=== PATIENT | female | born 1940 | race Caucasian/White ===

== ENCOUNTER 2020-07-14 08:34 | Outpatient (CLI) | payer MEDICARE, OTHER, SELFPAY ==
[2020-07-14 09:24] LABS: Alanine Aminotransferase 21 U/L (4-35); Albumin Level 4.2 g/dL (3.5-5.1); Alkaline Phosphatase 130 U/L (38-126); Anion Gap 10 mmol/L (8-16); Aspartate Amino Transferase 20 U/L (14-36); Bilirubin,Total 2.1 mg/dL (0.2-1.3); Blood Urea Nitrogen 18 mg/dL (7-17); Calcium 9.3 mg/dL (8.4-10.2); Carbon Dioxide 24 mmol/L (22-30); Chloride 105 mmol/L (98-107); Cholesterol 149 mg/dL (0-200); Estimated Glomerular Filt Rate > 60; Glucose 220 mg/dL (65-105); HDL Direct 58 mg/dL; Potassium 3.8 mmol/L (3.4-5.0); Sodium 139 mmol/L (137-145); Triglycerides 125 mg/dL (<150)
[2020-07-14 09:35] LABS: LDL Cholesterol Direct 67 mg/dL
[2020-07-14 09:55] LABS: Creatinine Urine 187.4 mg/dL
[2020-07-14 09:59] LABS: Microalbumin Urine Random 33.8 mg/L (0-16.7)
[2020-07-14 10:56] LABS: Hemoglobin A1C 8.9 % (<5.7)
== END 2020-07-14 08:35 | disposition home or self-care (01) ==
PROVIDERS: PCP Internal Medicine; Referring Provider Nurse Practitioner; Visit Provider Internal Medicine
DX: E78.5 Hyperlipidemia, unspecified (principal); Z79.899 Other long term (current) drug therapy; I10 Essential (primary) hypertension; E11.9 Type 2 diabetes mellitus without complications; F32.9 Major depressive disorder, single episode, unspecified
CPT/HCPCS: 36415; 80053; 80061; 82043; 83036; 84443

== ENCOUNTER 2021-04-09 06:59 | Outpatient (CLI) | payer MEDICARE, OTHER, SELFPAY ==
--- NOTE | ~2021-04-09 | MR_ITS ---
EXAMINATION: MR brain/brain stem wo con DATE: 04/09/2021 08:30 INDICATION: Amnesia TECHNIQUE: Magnetic resonance imaging (MRI) of the brain and brainstem was performed without intraven ous contrast. Sequences included sagittal and axial T1-weighted SE, axial diffusion-weighted FS SE, a xial T2*-weighted GRE, axial T2-weighted FLAIR, and axial T2-weighted FSE. Apparent diffusion coeffic ient (ADC) maps were created. COMPARISON: None. FINDINGS: There are no areas of restricted diffusion to suggest acute infarction. No intracranial hemorrhage or abnormal intracranial mass lesion. There are scattered areas of nonspecific increased T2-weighted si gnal intensity in the cerebral white matter, predominantly involving the deep and periventricular whi te matter which is within normal limits for age. There are no intraparenchymal signal abnormalities s een on the other pulse sequences. The ventricles are symmetric and normal in size. There are no abnor mal extra-axial fluid collections. Flow voids are seen in the cerebral arteries on the T2-weighted se quences consistent with their expected patency. The left vertebral artery is dominant. Changes of shilpi ateral intraocular lens replacement. Mild mucosal thickening the bilateral ethmoid and right sphenoi d sinuses. Mild hyperostosis frontalis. IMPRESSION: 1. Normal aging brain. Reviewed, dictated and finalized at location A. IMPRESSION: 1. Normal aging brain.
[2021-04-09 07:27] LABS: Basophils Absolute Auto 0.1 K/mm3 (0.0-0.1); Basophils Percent Auto 0.9 % (0.2-1.2); Eosinophils Absolute Auto 0.1 K/mm3 (0-0.3); Eosinophils Percent Auto 2.1 % (0-4.4); Hematocrit 41.6 % (37.0-47.0); Immature Granulocyte Absolute 0.04 K/mm3 (0.00-0.031); Immature Granulocyte Percent A 0.7 % (0-0.5); Lymphocytes Absolute Auto 1.12 K/mm3 (0.9-3.2); Lymphocytes Percent Auto 19.2 % (18.3-44.2); Mean Corpuscular HGB Conc 33.7 g/dl (32-36); Mean Corpuscular Hemoglobin 32.3 pg (26-34); Mean Corpuscular Volume 96.1 fl (80-100); Mean Platelet Volume 10.5 fl (7.4-10.4); Monocytes Absolute Auto 0.5 K/mm3 (0.1-0.6); Monocytes Percent Auto 7.7 % (2.6-8.5); Neutrophils Percent Auto 69.4 % (45.5-73.1); Platelet Count Result 223 k/mm3 (150-375); Red Blood Count 4.33 M/mm3 (4.2-5.4); Red Cell Distribution Width 12.3 % (11.5-14.5); White Blood Count 5.8 K/mm3 (4.5-10.0)
[2021-04-09 07:40] LABS: Alanine Aminotransferase 14 U/L (4-35); Albumin Level 4.2 g/dL (3.5-5.1); Alkaline Phosphatase 108 U/L (38-126); Anion Gap 8 mmol/L (8-16); Aspartate Amino Transferase 21 U/L (14-36); Bilirubin,Total 1.7 mg/dL (0.2-1.3); Blood Urea Nitrogen 16 mg/dL (7-17); Calcium 9.8 mg/dL (8.4-10.2); Carbon Dioxide 25 mmol/L (22-30); Chloride 104 mmol/L (98-107); Estimated Glomerular Filt Rate > 60; Glucose 185 mg/dL (65-110); Potassium 3.8 mmol/L (3.4-5.0); Sodium 137 mmol/L (137-145)
== END 2021-04-09 07:00 | disposition home or self-care (01) ==
PROVIDERS: PCP Internal Medicine; Visit Provider Internal Medicine
DX: R41.3 Other amnesia (principal); F22 Delusional disorders
CPT/HCPCS: 36415; 70551; 80053; 82607; 84443; 85025

== ENCOUNTER 2022-01-09 10:41 | Outpatient (CLI) | payer MEDICARE, OTHER, SELFPAY ==
[2022-01-09 11:16] LABS: Alanine Aminotransferase 23 U/L (4-35); Albumin Level 4.4 g/dL (3.5-5.1); Alkaline Phosphatase 113 U/L (38-126); Anion Gap 5 mmol/L (8-16); Aspartate Amino Transferase 28 U/L (14-36); Bilirubin,Total 1.3 mg/dL (0.2-1.3); Blood Urea Nitrogen 18 mg/dL (7-17); Carbon Dioxide 31 mmol/L (22-30); Chloride 104 mmol/L (98-107); Cholesterol 162 mg/dL (0-200); Estimated Glomerular Filt Rate > 60; Glucose 185 mg/dL (65-110); HDL Direct 63 mg/dL; Potassium 3.4 mmol/L (3.4-5.0); Sodium 140 mmol/L (137-145); Triglycerides 88 mg/dL (<150)
[2022-01-09 11:17] LABS: Hemoglobin A1C 7.2 % (<5.7)
[2022-01-09 11:27] LABS: LDL Cholesterol Direct 65 mg/dL
== END 2022-01-09 10:42 | disposition home or self-care (01) ==
PROVIDERS: PCP Internal Medicine; Visit Provider Internal Medicine
DX: E78.5 Hyperlipidemia, unspecified (principal); Z51.81 Encounter for therapeutic drug level monitoring; Z79.899 Other long term (current) drug therapy; E11.9 Type 2 diabetes mellitus without complications
CPT/HCPCS: 36415; 80053; 80061; 83036

== ENCOUNTER 2022-03-04 12:29 | Emergency (ER) | payer OTHER, SELFPAY ==
[2022-03-04] VITALS (8 sets, daily range): BP systolic 123–152; BP diastolic 61–95; PULSE 72–86; RESP 18–20; TEMP 36.3; O2SAT 97–98
--- NOTE | ~2022-03-04 | XR_ITS ---
XR chest 1V portable 03/04/2022 12:55 Indication: Cough and increased confusion. Low blood sugar. Procedure: AP portable chest Comparison: 02/21/2018 Findings: Borderline heart size. No focal air space disease, pulmonary edema, pleural effusion or marcel pected pneumothorax. No acute osseous abnormality. There are degenerative changes of the shoulders. N o acute osseous abnormality. Impression: 1: No acute cardiopulmonary disease. Reviewed, dictated and finalized at location A. Impression: 1: No acute cardiopulmonary disease.
[2022-03-04 12:39] LABS: Glucose Point of Care 75 mg/dl (65-105)
[2022-03-04 12:49] LABS: Basophils Percent Auto 0.1 % (0.2-1.2); Hematocrit 43.2 % (37.0-47.0); Hemoglobin 14.1 g/dL (12.0-15.0); Immature Granulocyte Absolute 0.04 K/mm3 (0.00-0.031); Immature Granulocyte Percent A 0.5 % (0-0.5); Lymphocytes Absolute Auto 0.48 K/mm3 (0.9-3.2); Lymphocytes Percent Auto 5.8 % (18.3-44.2); Mean Corpuscular HGB Conc 32.6 g/dl (32-36); Mean Corpuscular Hemoglobin 33.3 pg (26-34); Mean Corpuscular Volume 102.1 fl (80-100); Mean Platelet Volume 10.3 fl (7.4-10.4); Monocytes Absolute Auto 0.5 K/mm3 (0.1-0.6); Monocytes Percent Auto 6.4 % (2.6-8.5); Neutrophils Absolute Auto 7.2 K/mm3 (1.3-6.7); Neutrophils Percent Auto 87.2 % (45.5-73.1); Platelet Count Result 221 k/mm3 (150-375); Red Blood Count 4.23 M/mm3 (4.2-5.4); White Blood Count 8.3 K/mm3 (4.5-10.0)
[2022-03-04 13:00] LABS: Alanine Aminotransferase 25 U/L (6-35); Albumin Level 4.1 g/dL (3.5-5.1); Alkaline Phosphatase 105 U/L (38-126); Anion Gap 6 mmol/L (8-16); Aspartate Amino Transferase 37 U/L (14-36); Bilirubin,Total 0.9 mg/dL (0.2-1.3); Blood Urea Nitrogen 13 mg/dL (7-17); Carbon Dioxide 33 mmol/L (22-30); Chloride 101 mmol/L (98-107); Estimated CRCL calculation 53 ml/min; Estimated Glomerular Filt Rate > 60; Glucose 66 mg/dL (65-110); Potassium 3.3 mmol/L (3.4-5.0); Sodium 140 mmol/L (137-145)
[2022-03-04 13:17] LABS: Appearance Urine Clear (Clear); Bilirubin Urine 1+ (Negative); Blood Urine Trace-lysed (Negative); Color Urine Yellow (Yellow); Glucose Urine UA Negative (Negative); Ketones Urine 1+ mg/dL (Negative); Leukocyte Esterase Ur Negative LEU/UL (Negative); Nitrate Urine Negative (Negative); Protein Urine 2+ mg/dL (Negative); Specific Grav Ur 1.025 (1.001-1.035); pH Urine 6.5 (5.0-9.0)
[2022-03-04 13:20] LABS: Bacteria Urine Trace /hpf; Mucus Urine Rare /lpf; Squamous Epithelial Cell Urine Occasional /hpf (Few); WBC Urine 0-3 /hpf
[2022-03-04 13:21] LABS: Add Urine Microscopic? YES
[2022-03-04 14:51] LABS: Glucose Point of Care 114 mg/dl (65-105)
[2022-03-04 16:36] LABS: Glucose Point of Care 71 mg/dl (65-105)
[2022-03-04 17:55] LABS: Glucose Point of Care 215 mg/dl (65-105)
--- NOTE | 2022-03-04 18:24 | ED.GENADULT ---
HPI - General Adult General Chief complaint: Recheck/Abnormal Lab/Rx Stated complaint: confusion; BS 43, bls unit no oral glucose Source: RN notes reviewed History of Present Illness HPI narrative: Patient presents emergency department from [facility] via EMS for possible pneumonia. Per the staff the patient has had a mild cough for the past few days that she had had a COVID test at the facility that was negative yesterday but they are concerned she could be developing pneumonia on her son for further evaluation when EMS arrived they noted the patient blood sugar in the 40s per staff they had noted that she had been a little bit more sleepy and altered today normally is ANO x2 there was a BLS crew and they were unable to start an IV and did not have any oral glucose. Upon arrival the patient's blood sugar is back up to 75 and the patient is awake alert x2 she states she has been feeling fine she says she does not know why she was sent to the emergency department she states that she has had a mild cough but denies any fevers or chills chest pain shortness of breath abdominal pain nausea vomiting diarrhea or any other symptoms states she is hungry and will eat lunch Related Data Home Medications Medication Instructions Recorded Confirmed folic acid 1 mg tablet 1 mg PO DAILY 07/21/19 01/16/22 alprazolam 0.5 mg tablet mg 03/04/22 atorvastatin 40 mg tablet mg 03/04/22 buspirone 5 mg tablet tablet 03/04/22 donepezil 10 mg tablet tablet 03/04/22 glyburide 5 mg tablet mg 03/04/22 hydroxyzine pamoate 25 mg capsule 25 mg PO Q4HWA PRN Anxiety 03/04/22 sertraline 100 mg tablet mg 03/04/22 trazodone 50 mg tablet tablet 03/04/22 Allergies Allergy/AdvReac Type Severity Reaction Status Date / Time adhesive Allergy Severe RASH, Verified 03/04/22 12:32 ITCHING diclofenac Allergy Severe HEMATURIA Verified 03/04/22 12:32 diflunisal Allergy Severe UTI Verified 03/04/22 12:32 hydrocodone Allergy Severe TACHYCARDIA, Verified 03/04/22 12:32 NAUSEA ibuprofen Allergy Severe ITCHING, Verified 03/04/22 12:32 RASH oxycodone Allergy Severe TACHYCARDIA Verified 03/04/22 12:32 tramadol Allergy Severe ITCHING Verified 03/04/22 12:32 acetaminophen Allergy Itching Verified 03/04/22 12:32 [From Darvocet-N 100] propoxyphene Allergy Itching Verified 03/04/22 12:32 [From Darvocet-N 100] Review of Systems Review of Systems: Gen.: Denies fevers or chills Eyes: Denies eye pain or visual change ENT: Denies congestion Respiratory: Denies shortness of breath reports mild cough CV: Denies chest pain or palpitations GI: Denies abdominal pain nausea, emesis or diarrhea Musculoskeletal: Denies back pain or muscle pain Neuro: Denies numbness, tingling, weakness or focal weakness Skin: Denies rash Endocrine: See HPI Except as documented, all other systems reviewed and negative PMFSH Past Medical History Medical History Hx of breast cancer Lymphedema Osteoporosis Tachycardia Social History Social History Smoking status: Never smoker Second hand tobacco smoke exposure: Yes Alcohol intake: former Alcohol use details: social Substance use: never Substance use type: does not use Exam Narrative: APPEARANCE: No acute distress, nontoxic, resting in bed EYES: EOMI HEENT: Normocephalic, atraumatic, OMM RESPIRATORY: No respiratory distress Clear to auscultation bilaterally with no rhonchi wheezing or rales. CARDIOVASCULAR: Regular rate and rhythm without murmurs rubs or gallops. ABDOMINAL: Soft, nontender, nondistended, no rebound or guarding MUSCULOSKELETAl: Moves all extremities. No clubbing, cyanosis or edema. NEURO: Awake and alert x 2. Following commands, speech normal, no focal deficits SKIN:: Warm, dry. No rashes lesions or abrasions PSYCHIATRIC: Normal affect/mood, Course Course Emergency Course: Patient has
[2022-03-04] MEDS: POTASSIUM CHLORIDE 20 MEQ TABLET PO (18:42)
--- NOTE | 2022-03-04 20:37 | PC.NURSE ---
[facility] here to take patient back to the NH. Patient transferred back to the NH with her chart and belongings. Patient IV removed.
== END 2022-03-04 20:38 ==
PROVIDERS: Emergency Provider Emergency Medicine; PCP Internal Medicine
DX: J06.9 Acute upper respiratory infection, unspecified (principal); E11.649 Type 2 diabetes mellitus with hypoglycemia without coma; Z85.3 Personal history of malignant neoplasm of breast; M81.0 Age-related osteoporosis without current pathological fracture; Z79.84 Long term (current) use of oral hypoglycemic drugs
CPT/HCPCS: 36415; 71045; 80053; 81001; 82948; 85025; 99283; A9270

== ENCOUNTER 2022-03-08 13:46 | Emergency (ER) | payer OTHER, SELFPAY ==
--- NOTE | ~2022-03-08 | XR_ITS ---
EXAMINATION: XR wrist LT min 3V DATE: 03/08/2022 14:09 INDICATION: Left wrist pain. TECHNIQUE: 4 views of left wrist were obtained. COMPARISON: None. FINDINGS: There is a comminuted fracture of distal radius with involvement of the distal articular garza rface. The main distal fracture fragment demonstrates impaction and dorsal angulation. There is neutr al tilt of the distal articular surface. There is an avulsion fracture of the ulnar styloid. There is mild osteoarthritis of triscaphe joint and first carpometacarpal joint. IMPRESSION: 1. Comminuted fracture of distal radius. 2. Avulsion fracture of the ulnar styloid. 3. Mild polyarticular osteoarthritis. Reviewed, dictated and finalized at location B.
[2022-03-08 13:45] VITALS: BP 155/61; PULSE 87; RESP 20; TEMP 36.2; O2SAT 97
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
== END 2022-03-08 16:45 ==
PROVIDERS: Emergency Provider Emergency Medicine; PCP Internal Medicine
DX: S52.502A Unspecified fracture of the lower end of left radius, initial encounter for closed fracture (principal); W19.XXXA Unspecified fall, initial encounter
CPT/HCPCS: 29125; 73110; 99284